=== PATIENT | male | born 1960 | race Asian ===

== ENCOUNTER 2023-10-31 17:07 | Emergency (ER) | payer BC ==
[2023-10-31 17:59] LABS: BLOOD UREA NITROGEN,BUN 20 mg/dL (7-18); BUN/CREATININE RATIO 16.7 (9-20); CALCIUM 8.6 mg/dL (8.6-10.2); CARBON DIOXIDE,CO2 28 mmol/L (21-32); CHLORIDE,CL 101 mmol/L (100-110); CREATININE 1.2 mg/dL (0.70-1.30); EST CRCL DRUG DOSING (CG) 55.52 mL/min; ESTIMATED GFR 68 mL/min (>60); GLUCOSE RANDOM 98 mg/dL (80-116); SODIUM,NA 138 mmol/L (135-145)
[2023-10-31 18:00] LABS: MEAN CORPUSCULAR HEMOGLOBIN 29.3 pg (27.0-33.3); MEAN CORPUSCULAR HGB CONC 31.1 g/dL (28.7-35.3); MEAN CORPUSCULAR VOLUME 94.3 fL (80.8-98.7); MEAN PLATELET VOLUME 12.4 fL (6.7-11.0); PLATELET COUNT,PLT 278 x10(3)uL (117-477); RED BLOOD CELL COUNT 2.02 x10(6)uL (3.90-5.90); RED CELL DISTRIBUTION WIDTH 17.1 % (12.4-15.0)
[2023-10-31 18:03] LABS: HEMOGLOBIN 5.9 g/dL (12.9-17.7)
[2023-10-31 18:05] LABS: A/G RATIO 0.9; ALANINE AMINOTRANSFERASE,ALT 15 U/L (12-36); ALBUMIN 3.6 g/dL (3.2-4.6); ALKALINE PHOSPHATASE 58 IU/L (56-112); ASPARTATE AMNIOTRANSFERASE,AST 13 IU/L (5-25); BILIRUBIN TOTAL 0.9 mg/dL (0.1-1.3); PROTEIN TOTAL,TP 7.7 g/dL (6.0-8.0)
[2023-10-31 18:12] LABS: TROPONIN I 59.9 pg/mL (4.0-60.3)
[2023-10-31 18:14] LABS: BILIRUBIN,URINE NEGATIVE (NEGATIVE); GLUCOSE,URINE NORMAL (NORMAL); KETONES,URINE NEGATIVE (NEGATIVE); LEUKOCYTE ESTERASE,URINE NEGATIVE (NEGATIVE); NITRITE,URINE NEGATIVE (NEGATIVE); OCCULT BLOOD,URINE NEGATIVE (NEGATIVE); PH,URINE 6.5 (5.0-6.5); PROTEIN,URINE NEGATIVE (NEGATIVE); UROBILINOGEN,URINE NORMAL (NEGATIVE)
[2023-10-31 18:16] LABS: APPEARANCE,URINE CLEAR (CLEAR); BACTERIA,URINE NOT SEEN (NS); COLOR,URINE YELLOW (YELLOW); RBC,URINE 0-5 (0-5); SQUAMOUS EPITHELIAL CELLS,UR RARE (NS,R,O); WBC,URINE 0-5 (0-5)
[2023-10-31] MEDS: Sodium Chloride 0.9% 250 ML IV SCH (19:27)
[2023-10-31] MEDS: Acetaminophen 500 MG Tab PO ONE (20:51)
[2023-11-02 10:58] LABS: BAND PERCENT MAN 5 % (0-6); LYMPHOCYTES PERCENT MAN 22 % (13-37); METAMYELOCYTE PERCENT MAN 10 % (0-0); MONOCYTES PERCENT MAN 28 % (4-12); SEG NEUTROPHILS PERCENT MAN 30 % (46-82)
[2023-11-02 10:59] LABS: MYELOCYTE PERCENT MAN 5 % (0-0)
[2023-11-02 11:01] LABS: ANISOCYTOSIS FEW
[2023-11-02 17:03] LABS: FOLATE,SERUM 13.2 ng/mL (>=5.9)
[2023-11-02 23:03] LABS: IRON BINDING CAPACITY TOTAL 181 ug/dL (240-450); IRON,SERUM OR PLASMA 76 ug/dL (45-182); TRANSFERRIN SATURATION 42 %sat (20-50)
== END 2023-10-31 21:16 ==
LOC: FB.ED 17:07
DX: D64.9 Anemia, unspecified (principal); I10 Essential (primary) hypertension; Z79.51 Long term (current) use of inhaled steroids; Z79.899 Other long term (current) drug therapy; Z88.0 Allergy status to penicillin
CPT/HCPCS: 36415; 36430; 71046; 80053; 81001; 82607; 82746; 83540; 83550; 83605; 83690; 84484; 85025; 86850; 86900; 86901; 86920; 86922; 87040; 99285; A9270; J7050; P9016